=== PATIENT | male | born 1955 | race Caucasian/White ===

== ENCOUNTER 2023-05-05 13:00 | Outpatient (RCR) | payer MEDICARE, OTHER, SELFPAY | END 2023-05-05 23:59 | disposition home or self-care (01) | LOC: CRHB 13:00 | PROVIDERS: ATTENDING PHYSICIAN Internal Medicine Cardiovascular Disease | DX: I25.10 Atherosclerotic heart disease of native coronary artery without angina pectoris (principal); Z95.5 Presence of coronary angioplasty implant and graft | CPT/HCPCS: G0422 ==

== ENCOUNTER 2023-05-11 09:49 | Outpatient (RCR) | payer MEDICARE, OTHER, SELFPAY | END 2023-05-11 23:59 | disposition home or self-care (01) | LOC: CRHB 09:49 | PROVIDERS: ATTENDING PHYSICIAN Internal Medicine Cardiovascular Disease | DX: I25.10 Atherosclerotic heart disease of native coronary artery without angina pectoris (principal); Z95.5 Presence of coronary angioplasty implant and graft | CPT/HCPCS: 93005; G0422; G0423 ==

== ENCOUNTER → 2023-07-02 16:35 | Outpatient (REF) | payer MEDICARE, OTHER, SELFPAY ==
[2023-07-02 17:10] LABS: INR 1.29
== END ==
LOC: REG 16:35
PROVIDERS: ATTENDING PHYSICIAN Internal Medicine Cardiovascular Disease
DX: I48.0 Paroxysmal atrial fibrillation (principal)
CPT/HCPCS: 36415; 85610

== ENCOUNTER → 2023-07-06 11:32 | Outpatient (REF) | payer MEDICARE, OTHER, SELFPAY ==
[2023-07-06 12:55] LABS: INR 1.34; PT 16.4 Sec (11.4-14.6)
== END ==
LOC: REG 11:32
PROVIDERS: ATTENDING PHYSICIAN Internal Medicine Cardiovascular Disease; FAMILY PHYSICIAN Nurse Practitioner Family
DX: I48.91 Unspecified atrial fibrillation (principal)
CPT/HCPCS: 36415; 85610

== ENCOUNTER 2023-12-02 06:10 | Day surgery (SDC) | payer MEDICARE, OTHER, SELFPAY ==
[2023-11-19 13:37] VITALS: BMI 31.7
[2023-11-21 11:28] LABS: INR 2.27; PT 24.9 Sec (11.4-14.6)
[2023-12-02] VITALS (10 sets, daily range): BP systolic 106–125; BP diastolic 66–80; BMI 31.6
[2023-12-02 07:09] LABS: INR 1.97; PT 22.6 Sec (11.4-14.6)
[2023-12-02 09:11] LABS: ACT-LR - POC 366 Seconds (116-155)
[2023-12-02 09:34] LABS: ACT-LR - POC 398 Seconds (116-155)
[2023-12-02] MEDS: FLOMAX 0.4 MG PO (11:15)
--- NOTE | 2023-12-02 12:00 | ITS.CL.ABL ---
Film Projector Operator - Ablation
Ablation
Procedure Report:
AFIB ablation:
Mr. Robbins is a very pleasant 68 yr old gentleman with symptomatic paroxysmal AF presented today to the EP lab for atrial fibrillation ablation.
Date of the Procedure:
12/02/2023
Indications:
Paroxysmal atrial fibrillation
Pre-Operative Diagnosis:
Paroxysmal atrial fibrillation
Post-Operative Diagnosis:
Paroxysmal atrial fibrillation
Procedure Performed:
Atrial fibrillation ablation with Pulsed-Field approach for pulmonary vein isolation
Performing Physician:
Kevin Rascon MD
Assistants:
EP staff
Anesthesia:
See anesthesia records
Detailed Description of the Procedure:
Written informed consent was obtained from the patient after a full explanation of the risks and benefits of the procedure including the risks of sedation and anesthesia.
The patient was brought to the electrophysiology laboratory in stable condition in fasting state. Continuous electrocardiographic and hemodynamic monitoring was initiated.
The initial rhythm was normal sinus rhythm.
Device Interrogation:
Patient has [employer] ICD in place. The device was interrogated at the start of the case. The device and the lead was working normally. The tachy-therapies monitoring and interventions were suspended before the start of the case. The operating system programmer
remained connected in the room throughout the procedure.
At the end of the case the device was reprogrammed to normal functioning at the previous settings. All therapies are resumed and ICD was armed before patient left the procedure room.
The procedure site was meticulously prepared with surgical scrub and allowed to dry with no pooling. Sterile draping was applied to cover the procedure site. The image intensifier was draped with sterile bag and positioned over the patient. After
infusion of local anesthetic, vascular access was obtained under ultrasound guidance and sheaths were placed over guide wire as detailed below.
Sheath and Catheter Placement:
In the right femoral vein, an 8-Australian sheath was placed under ultrasound guidance for use during the ablation procedure and a mapping catheter was intermittently placed in the high right atrium, right ventricle, left atrium. In the right femoral
vein, another 9-Fr sheath was placed for use during intra-cardiac echo procedure. Another 7Fr sheath was placed in the left femoral vein for CS catheter placement.
The sheaths were upgraded as needed during the case. Intra-cardiac catheters were positioned using direct fluoroscopic guidance. Decapolar catheter advanced into CS position. ICE catheter was placed in RA. The following catheters / sheaths were
placed
Sheaths:
��������� 15Fr steerable sheath (FlexCath Cross�, Threat Stack) in right femoral vein in right femoral vein
��������� 9Fr in right femoral vein
���������
Catheters:
��������� FAUSTO HD Grid mapping catheter � at locations of RA, LA
��������� PulseSelect� PFA catheter
��������� ICE catheter -AcuNav - at locations of RA, SVC, and RV.
Intracardiac ECHO:
An 8-Australian AcuNav intracardiac ECHO (ICE) probe was advanced through the 9-Australian sheath in the right femoral vein into the right atrium under fluoroscopic and ICE ultrasound image guidance and a baseline ECHO study was performed. The left atrial
size was mildly dilated. There was moderate tricuspid regurgitation. The aortic valve was grossly normal. There was normal left ventricular systolic functions. There is trace pericardial effusion. All the four veins were identified and has flow
identified.
During the procedure, ICE was used for monitoring of complications, guidance of trans-septal puncture, monitor the catheter position and tracking ablation lesions. No change in the pericardial space noted throughout the procedure.
Trans-septal Puncture:
Heparin was initiated and infused to maintain appropriate ACT. A J-tipped guidewire was advanced through the 8-Australian sheath in the right femoral vein into the superior vena cava under fluoroscopic and ICE guidance. The 8-Australian sheath was exchanged
for a FlexCath Cross sheath which was advanced into the superior vena cava. An AcPlaylore transseptal access system was utilized to perform the trans-septal puncture. The apparatus was withdrawn until it was in contact with the fossa ovalis. The
position was adjusted based on fluoroscopy and ultrasound images from ICE. Under fluoroscopic, hemodynamic and ICE ultrasound guidance, left atrium was cannulated by advancing the needle. Once atrial septum was cannulated, the needle was pulled back
and a guide wire was advanced through the needle into the left atrium. The guide wire was advanced into the left superior pulmonary vein. Both the sheath and the dilator was advanced into the left atrium. The dilator with the needle was withdrawn.
Blood was aspirated from the FlexCath cross sheath and arterial blood confirmed. The sheath was flushed. Saline injection noted into the left atrium on ICE. The mapping catheter was advanced in the Agilis sheath into the left pulmonary vein. Left
atrial pressure was measured.
3D Electroanatomic Mapping:
Using the HD Grid catheter advanced through sheath into the left atrium, an electroanatomic map (EAM) of the left atrium was created using [employer] mapping system. The map was used for localization of catheter position and tacking of ablation
lesions. The EAM of the left atrium showed 4 pulmonary veins with two left sided and two right sided veins electrically connected to the body the LA. The EAM showed no significant scar in the left atrium.
The LA was normal in size.
Following the EAM, preparation were made for ablation.
Ablation:
Ablation # 1: Pulmonary vein Isolation:
Using PulseSFormisimo� pulsed field ablation system, pulmonary vein isolation was achieved. First the ablation catheter was placed in the LIPV and ostial ablation lesions were performed in a counter clock downs approach all around the PV ostium
circumferentially. Then the catheter was placed on the antral location and multiple ablation lesions were placed circumferentially on the antrum of the vein.
In the similar fashion, the LSPV were isolated.
Then the catheter was moved to right sided veins. The phrenic nerve was paced before and after the ablation on the right sided vein esther the anterior ablations.
The ostial and antral ablations were placed as noted above.
Post ablation Electroanatomic mapping:
Once the sinus rhythm achieved, the LA was mapped with HD grid in detail.
The veins were isolated and normal electrograms noted in the posterior wall. Excellent WACA ablation noted with excellent demarcation of LA myocardium and isolated antral tissue. There was dissociated signals were noted in the veins as well.
EPS and Confirmation of the PVI and bidirectional block:
Following achievement of entrance block at the pulmonary veins, pacing from the HD catheter in each of the four veins at 10 milliamps for 2 milliseconds showed entrance and exit block. All PVI were rechecked at the end of the case and remained
isolated with dissociated and local capture with pacing. Entrance and exit block were demonstrated in all veins.
Procedure End
ICE study was done again that showed no epicardial accumulation. No complications noted.
Following the completion of the EP study, catheters were removed. Protamine 30 mg was given at the end of the procedure and ACT was checked repeatedly. The sheaths were removed and hemostasis achieved with VASCADE and manual compression after
acceptable ACT is achieved.
Left atrial Pressure:
Mean LA pressure was 7mmHg
Mean RA pressure was 4mmHg
Estimated Blood loss:
<10 cc
Specimens Removed:
None.
Implants / Devices:
None
Urine output:
None
Packs / Drains/ Tubes:
None
Instrument / Sponge Count Correct:
Yes
Complications of the Procedure:
None
Condition of Patient at Time of Transfer:
Hemodynamically stable with no neurological or vascular compromise.
Summary:
Successful atrial fibrillation ablation with Pulsed Field approach for pulmonary vein isolation
Figures from the Procedure:
Figure 1: The electroanatomic mapping (EAM) of the left atrium with bipolar voltage (purple indicates normal electrical activity with fletcher as no myocardial muscle electric activity indicating a line of block or scar.
--- NOTE | 2023-12-02 13:53 | W.PN.UPDATE ---
Update Note
Progress Note Update
68 yo WM s/p- PVI (SAme day). He feels good, no cp, sob, yolanda diet, voiding, R fem VASCADE site c/d/i no HT, EKG SR. He will continue Coumadin dose at home per schedule. Activity restrictions reviewed. 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 He is for d/c home
after 1pm
Mr. Robbins is a very pleasant 68 yr old gentleman with symptomatic paroxysmal AF presented today to the EP lab for atrial fibrillation ablation.
12/02/2023
Atrial fibrillation ablation with Pulsed-Field approach for pulmonary vein isolation
[2023-12-03 07:58] LABS: ACT-LR - POC > 397 Seconds (116-155)
[2023-12-03 07:58] LABS: ACT-LR - POC > 397 Seconds (116-155)
== END 2023-12-02 13:05 | disposition home or self-care (01) ==
LOC: CATH 06:10
PROVIDERS: ATTENDING PHYSICIAN Internal Medicine Cardiovascular Disease; FAMILY PHYSICIAN Nurse Practitioner Family; OTHER PHYSICIAN Internal Medicine Cardiovascular Disease
DX: I48.0 Paroxysmal atrial fibrillation (principal); E66.9 Obesity, unspecified; E78.5 Hyperlipidemia, unspecified; I25.2 Old myocardial infarction; I25.5 Ischemic cardiomyopathy; I25.10 Atherosclerotic heart disease of native coronary artery without angina pectoris; Z79.01 Long term (current) use of anticoagulants; Z79.899 Other long term (current) drug therapy; Z88.8 Allergy status to other drugs, medicaments and biological substances; Z95.5 Presence of coronary angioplasty implant and graft; N40.0 Benign prostatic hyperplasia without lower urinary tract symptoms; Z68.31 Body mass index [BMI] 31.0-31.9, adult; Z79.02 Long term (current) use of antithrombotics/antiplatelets
CPT/HCPCS: C1732; C1733; C1769; C1759; C1892; 76937; 85347; 85610; 86900; 86901; 93005; 93656; C1760; C1894

== ENCOUNTER → 2024-03-20 10:11 | Outpatient (REF) | payer MEDICARE, OTHER, SELFPAY | LOC: RCS 10:11 | PROVIDERS: ATTENDING PHYSICIAN Nurse Practitioner; FAMILY PHYSICIAN Nurse Practitioner Family | DX: I48.91 Unspecified atrial fibrillation (principal); I25.10 Atherosclerotic heart disease of native coronary artery without angina pectoris; E78.00 Pure hypercholesterolemia, unspecified; I25.5 Ischemic cardiomyopathy; Z95.810 Presence of automatic (implantable) cardiac defibrillator | CPT/HCPCS: 93306 ==

== ENCOUNTER → 2025-03-12 10:26 | Outpatient (REF) | payer MEDICARE, OTHER, SELFPAY | LOC: RAD 10:26 | PROVIDERS: ATTENDING PHYSICIAN Nurse Practitioner Family | DX: G89.29 Other chronic pain (principal); M25.562 Pain in left knee; M25.561 Pain in right knee | CPT/HCPCS: 73564 ==